=== PATIENT | male | born 1960 | race Caucasian/White ===

== ENCOUNTER 2016-07-07 08:11 | Emergency (ER) | payer BC ==
[~2016-07-07] VITALS: Ht 180.3 cm; Wt 119.0 kg
[~2016-07-07 08:11] MED LIST: ALLOPURINOL100 MG PO; INDOCIN25 MG PO; NAPROSYN500 MG PO; NORCO 5/3251 TABLET PO
[2016-07-07 08:16] VITALS: BP 131/76
[2016-07-07 09:06] LABS: BASOPHIL COUNT 0.1 K/uL (0-0.1); EOSINOPHIL (%) 1.7 % (0-5); EOSINOPHIL COUNT 0.2 K/uL (0-0.3); HEMATOCRIT 42.4 % (38.0-50.0); IMMATURE GRANULOCYTE (%) 0.5 % (0.0-0.7); IMMATURE GRANULOCYTE COUNT 0.1 K/uL; INSTRUMENT ABS NEUTROPHIL CT 7.4 K/uL; LYMPHOCYTE COUNT 1.5 K/uL (1.0-2.8); MCH 30.6 PG (29.0-34.0); MCHC 33.3 G/DL (30.0-36.0); MEAN PLAT.VOLUME 9.7 uM^3 (9.0-12.4); MONOCYTE COUNT 0.7 K/uL (0-0.8); NEUTROPHIL (%) 75.5 % (45-76); NEUTROPHIL COUNT 7.4 K/uL (1.8-6.4); PLATELET COUNT 282 K/uL (156-360); RBC DIS.WIDTH-CV 12.3 % (11.8-14.6); RBC DIS.WIDTH-SD 41.8 % (39-53); RED BLOOD COUNT 4.61 M/uL (4.00-5.50); WHITE BLOOD COUNT 9.9 K/uL (4.1-10.2)
[2016-07-07 09:20] LABS: CHLORIDE 102 mEq/L (99-109); POTASSIUM 4.6 mEq/L (3.7-5.4); SODIUM 137 mEq/L (136-147)
[2016-07-07 09:21] LABS: GLUCOSE 155 mg/dL (70-99)
[2016-07-07 09:23] LABS: ANION GAP 10 MEQ/L (2-14)
[2016-07-07 09:25] LABS: GFR ESTIMATE (CALCULATED) > 59 mL/min/
[2016-07-07 09:26] LABS: UREA NITROGEN (BUN) 14 mg/dL (9-23)
[2016-07-07 09:28] LABS: URIC ACID 6.4 mg/dL (3.1-9.2)
[2016-07-07] MEDS ORDERED: PREDNISONE20 MG PO (10:24)
[2016-07-07] MEDS ORDERED: LORTAB 5-325 M1 EACH PO (10:24)
== END 2016-07-08 09:53 | disposition home or self-care (01) ==
LOC: EME 08:11
PROVIDERS: Physician Assistant
DX: M25.562 Pain in left knee (principal); M54.16 Radiculopathy, lumbar region; X50.0XXA Overexertion from strenuous movement or load, initial encounter; Y93.89 Activity, other specified
CPT/HCPCS: 73564; 80048; 84550; 85025